=== PATIENT | male | born 1960 | race Caucasian/White ===

== ENCOUNTER 2018-04-05 10:48 | Emergency (ER) | payer SELFPAY ==
[~2018-04-05] VITALS: Ht 167.6 cm; Wt 130.5 kg
[~2018-04-05 10:48] MED LIST: ADVIL,NUPRIN,M200 MG PO; BACTRIM,SEPT1 TABLET PO; CLEOCIN300 MG PO; PERCOCET 5/31 TABLET PO
[2018-04-05] MEDS ORDERED: CLINDAMYCIN HC300 MG PO (13:25)
[2018-04-05] MEDS ORDERED: CARVEDILOL25 MG PO (13:25)
[2018-04-05 14:05] VITALS: BP 182/105
== END 2018-04-05 14:39 | disposition home or self-care (01) ==
LOC: EME 10:48
DX: S73.101A Unspecified sprain of right hip, initial encounter (principal); W01.0XXA Fall on same level from slipping, tripping and stumbling without subsequent striking against object, initial encounter; Y93.H2 Activity, gardening and landscaping; K08.89 Other specified disorders of teeth and supporting structures; I10 Essential (primary) hypertension; K02.9 Dental caries, unspecified; Z87.891 Personal history of nicotine dependence
CPT/HCPCS: 72220; 73502; 93005; 99281; 99285